=== PATIENT | female | born 1985 | race Caucasian/White ===

== ENCOUNTER 2022-10-14 12:57 | Observation (INO) | payer OTHER ==
[2022-10-14] MEDS ORDERED: PROMETHAZINE INJ 25 MG/ML AMP ONE ×2 (13:20→19:12)
[2022-10-14] MEDS ORDERED: NA CHLORIDE 0.9% 1,000 ML ONE ×3 (13:20→21:39)
[2022-10-14] MEDS ORDERED: METOCLOPRAMIDE 10 MG/2mL INJ ONE ×2 (14:19→16:34)
[2022-10-14] MEDS ORDERED: NA CHLORIDE 0.9% 50 ML ONE (14:20)
[2022-10-14] MEDS ORDERED: LORazepam 2 MG/ML VIAL ONE (14:45)
[2022-10-14] MEDS ORDERED: FAMOTIDINE 20 MG/2 ML VIAL IV ONE (16:15)
[2022-10-14 16:46] LABS: Absolute Lymphocytes (CBC) 1.5 K/uL (0.7-4.9); Hematocrit 42.8 % (36.0-45.0); Lymphocytes % 7.6 % (15.3-44.8); MCV 93.2 fL (80-100)
[2022-10-14 17:02] LABS: Albumin 3.9 g/dL (3.4-5.0); Bilirubin Total 0.5 mg/dL (0.2-1.0); Protein, Total 7.5 g/dL (6.4-8.2)
[2022-10-14 17:23] LABS: Specific Gravity 1.013 (1.005-1.030)
[2022-10-14 17:26] LABS: Specific Gravity 1.013 (1.005-1.030); Urine Bacteria <20 /HPF (<20); Urine Bilirubin NEGATIVE (Negative); Urine Blood 3+ (OVER) (Negative); Urine Clarity Turbid (Clear); Urine Color Colorless (Yellow); Urine Glucose NEGATIVE (Negative); Urine Mucus Slight /HPF (None Seen); Urine Protein NEGATIVE (Negative); Urine RBC >50 /HPF (None Seen); Urine Urobilinogen Normal (Normal)
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
[2022-10-14] MEDS ORDERED: KCL 20 MEQ/100 mL IVPB 100 ML IV ONE (18:47)
--- NOTE | 2022-10-14 19:27 | RAD REPORT ---
EXAM DESCRIPTION: CTAbdomen Pelvis W Contrast - 10/14/2022 7:12 pm CLINICAL HISTORY: vomiting;Abd pain;Pain COMPARISON: No comparisons TECHNIQUE: CT of the abdomen and pelvis was performed. All CT scans are performed using dose optimization technique as appropriate and may include automated exposure control or mA/KV adjustment according to patient size. FINDINGS: Lower chest: No acute abnormality. Small hiatal hernia . Liver: No acute abnormality or suspicious lesions. Biliary: No biliary ductal dilatation. Stomach: No significant focal abnormality. Duodenum: No significant focal abnormality. Pancreas: No significant abnormality. Spleen: No significant abnormality. Adrenal: No suspicious lesions. Kidney/ureter: No hydronephrosis. No renal calculi. Retroperitoneum: No retroperitoneal adenopathy. Vascular: No aneurysm. Bowel: No significant focal abnormality. Normal appendix. Peritoneum: No ascites or free air. Bladder: Grossly unremarkable. Reproductive: No adnexal masses. Bones: No acute fracture. Other: n/a IMPRESSION: No acute intra-abdominal or pelvic finding. Normal appendix.
[2022-10-14] MEDS ORDERED: PROMETHAZINE INJ 25 MG/ML AMP IV PRN (19:39)
[2022-10-14] MEDS ORDERED: ONDANSETRON 4 MG/2 ML VIAL IV PRN (19:39)
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
[2022-10-14] MEDS ORDERED: KETOROLAC 30 MG/ML INJ IV PRN (19:59)
[2022-10-14 23:44] VITALS: O2SAT 100
[2022-10-15] MEDS: DICYCLOMINE HCL 10 MG CAP PO SCH ×4 (00:16→20:18)
[2022-10-15] MEDS: NA CHLORIDE 0.9% 1,000 ML IV SCH ×3 (00:16→20:18)
[2022-10-15 02:45] VITALS: BMI 30.5
[2022-10-15 03:31] LABS: Absolute Lymphocytes (CBC) 3.8 K/uL (0.7-4.9); Hematocrit 40.3 % (36.0-45.0); Lymphocytes % 30.9 % (15.3-44.8); MPV 9.1 fL (7.6-11.3); RBC Red Blood Cell Count 4.33 M/uL (3.86-4.86)
[2022-10-15 03:40] LABS: Albumin 3.8 g/dL (3.4-5.0); Bilirubin Total 0.5 mg/dL (0.2-1.0); Magnesium 1.9 mg/dL (1.6-2.4); Phosphorus 1.6 mg/dL (2.5-4.9); Potassium 3.3 mEq/L (3.5-5.1); Protein, Total 7.3 g/dL (6.4-8.2)
[2022-10-15] MEDS ORDERED: ENOXAPARIN 40 MG/0.4 ML SQ SCH (09:00)
[2022-10-15] MEDS ORDERED: POTASSIUM CL SA 10 MEQ TAB PO ONE (09:00)
[2022-10-15] MEDS: POTASS/SODIUM PHOSPHATE 1 PKT POWD.PACK PO SCH ×3 (09:33→11:38)
[2022-10-15 11:07] LABS: Hepatitis B Core IgM Nonreactive (Nonreactive); Hepatitis B surface AG Interp. Nonreactive (Nonreactive); Hepatitis C Virus Ab Nonreactive (Nonreactive)
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
--- NOTE | 2022-10-15 18:09 | P.PN ---
Subjective Date of Service: 10/15/22 Chief Complaint: intractable nausea, vomiting Patient has been experiencing persistent nausea and vomiting today. She has been afebrile. Physical Examination - Vital Signs Temperature: 98.5 F Blood Pressure: 116/62 Pulse: 89 Respirations: 19 Pulse Ox (%): 98 Assessment And Plan - Current Problems (Diagnosis) (1) Intractable nausea and vomiting Current Visit: Yes Status: Acute (2) Dehydration Current Visit: Yes Status: Acute (3) Leukocytosis Current Visit: Yes Status: Acute - Plan Physical Exam General: Alert, mild distress due to nausea and vomiting. Neck: Supple, JVD not distended Respiratory: Clear to auscultation bilaterally, Normal air movement Cardiovascular: No edema, Normal pulses, Regular rate/rhythm, Normal S1 S2 Gastrointestinal: Normal bowel sounds, no tenderness. Integumentary: No rashes, No breakdown Neurological: No focal motor deficit. Diagnosis Intractable nausea vomiting Transaminitis Leukocytosis unknown source Suprapubic abdominal pain Hypokalemia Anxiety depression History of ADHD DVT prophylaxis Plan Intractable nausea vomiting No evidence of UTI. CT abdomen pelvis has been unremarkable, no bowel dilatation or gastric distention to suggest gastroparesis. IV fluids Antiemetics as needed. IV Reglan. Hypokalemia hypokalemia 3.0 Monitor and replace electrolytes as needed. Leukocytosis: Likely secondary to hemoconcentration from dehydration WBC count significantly improved with IV hydration History of ADHD Anxiety depression Continue home meds
[2022-10-15] MEDS: METOCLOPRAMIDE 10 MG/2mL INJ IV SCH (20:18)
[2022-10-15] MEDS ORDERED: HOME MED 1 EA UNK (Buspirone Hcl [Buspar] 10 MG Tablet) PO SCH (21:00)
[2022-10-15] MEDS ORDERED: BUSPIRONE HCL 5 MG TABLET PO SCH (21:00)
[2022-10-15] MEDS ORDERED: HOME MED 1 EA UNK (Bupropion Hcl [Wellbutrin Sr] 100 MG Tablet.Er) PO SCH (21:00)
[2022-10-15] MEDS ORDERED: MORPHINE 4 MG/ML SYR IV ONE (21:17)
[2022-10-15 22:34] VITALS: TEMP 97.6
[2022-10-16] MEDS: METOCLOPRAMIDE 10 MG/2mL INJ IV SCH (02:00)
[2022-10-16] MEDS ORDERED: PANTOPRAZOLE 40MG TABLET PO ONE (03:31)
[2022-10-16 04:38] LABS: Absolute Lymphocytes (CBC) 5.7 K/uL (0.7-4.9); Hematocrit 41.1 % (36.0-45.0); Lymphocytes % 47.9 % (15.3-44.8); MPV 9.2 fL (7.6-11.3); Potassium 4.4 mEq/L (3.5-5.1); RBC Red Blood Cell Count 4.33 M/uL (3.86-4.86)
[2022-10-16 05:30] VITALS: BP 124/60
== END 2022-10-16 09:29 | disposition home or self-care (01) ==
LOC: ER 12:57 → ERHOLD 19:33 → 2ND 22:44
PROVIDERS: ADMIT Internal Medicine; ATTEND Internal Medicine
DX: R11.2 Nausea with vomiting, unspecified (principal); E86.0 Dehydration; F41.9 Anxiety disorder, unspecified; F32.A Depression, unspecified; F90.9 Attention-deficit hyperactivity disorder, unspecified type; F17.210 Nicotine dependence, cigarettes, uncomplicated; R10.9 Unspecified abdominal pain; E87.6 Hypokalemia; R74.01 Elevation of levels of liver transaminase levels; D72.829 Elevated white blood cell count, unspecified
CPT/HCPCS: 96361; 85025 ×3; 81001; 80048; 36415 ×2; 83735; 82550; 81025; 84100; 84132; 80053 ×2; 80074; 74177; 96375; 96374; 99285; Q9967; J2550 ×3; J3480; J2765 ×3; J1650; J7030 ×5; J2405